=== PATIENT | male | born 1980 | race Caucasian/White ===

== ENCOUNTER → 2019-10-02 | Emergency (ER) | payer SELFPAY ==
[~2019-10-02] VITALS: Ht 182.9 cm; Wt 84.8 kg
[~2019-10-02] MED LIST: CARI-277 PO; CLON1TAB PO; DOXE100C4 PO; HYDR7.5T PO; LITH300C3 PO; LITH300T3; LITH300T3 PO; NOR10T; RISP1TAB33
[2019-10-02 14:08] VITALS: BP 153/96
== END | disposition home or self-care (01) ==
LOC: ER 12:28
DX: S62.307D Unspecified fracture of fifth metacarpal bone, left hand, subsequent encounter for fracture with routine healing (principal); Z76.0 Encounter for issue of repeat prescription; Z88.6 Allergy status to analgesic agent; Z88.8 Allergy status to other drugs, medicaments and biological substances; X58.XXXD Exposure to other specified factors, subsequent encounter